=== PATIENT | female | born 1970 | race Asian ===

== ENCOUNTER → 2024-05-20 | Emergency (ER) | payer BC ==
[~2024-05-20] VITALS: Ht 165.1 cm; Wt 76.2 kg
[2024-05-20 08:44] VITALS: BP 122/74; TEMP 98.7; O2SAT 98
== END | disposition left against medical advice (07) ==
LOC: ER 08:30
DX: R05.9 Cough, unspecified (principal); R50.9 Fever, unspecified; Z53.21 Procedure and treatment not carried out due to patient leaving prior to being seen by health care provider